=== PATIENT | female | born 1955 | race Caucasian/White ===

== ENCOUNTER 2018-05-02 07:45 | Outpatient (CLI) | payer OTHER | END 2018-05-02 07:46 | disposition home or self-care (01) | LOC: BICMAMMO 07:45 | PROVIDERS: ATTEND Obstetrics & Gynecology | DX: Z12.31 Encounter for screening mammogram for malignant neoplasm of breast (principal) | CPT/HCPCS: 77063; 77067 ==

== ENCOUNTER 2019-05-06 09:32 | Outpatient (CLI) | payer OTHER ==
--- NOTE | 2019-05-06 10:41 | MMO ---
Bilateral MAMMO Bilat Screen [facility]. CLINICAL HISTORY: Patient is 64 years old and is seen for screening. The patient has no family history of breast cancer. The patient has no personal history of cancer. The patient has a history of left Stereotatic Biopsy in May, - benign and left Cyst Aspiration in 1990. VIEWS: The views performed were: bilateral craniocaudal with tomosynthesis and bilateral mediolateral oblique with tomosynthesis. FILMS COMPARED: The present examination has been compared to prior imaging studies performed at [facility] on 05/26/2014, 06/08/2015, 04/12/2017 and 05/02/2018. This study has been interpreted with the assistance of computer-aided detection. MAMMOGRAM FINDINGS: There are scattered fibroglandular densities. There is a stable biopsy clip seen in the left breast. There are no suspicious masses, suspicious calcifications, or new areas of architectural distortion. IMPRESSION: THERE IS NO MAMMOGRAPHIC EVIDENCE OF MALIGNANCY. A ROUTINE FOLLOW-UP MAMMOGRAM IN 1 YEAR IS RECOMMENDED. THE RESULTS OF THIS EXAM WERE SENT TO THE PATIENT. ACR BI-RADS Category 2 - Benign finding MAMMOGRAPHY NOTE: 1. A negative mammogram report should not delay a biopsy if a dominant of clinically suspicious mass is present. 2. Approximately 10% to 15% of breast cancers are not detected by mammography. 3. Adenosis and dense breasts may obscure an underlying neoplasm. Reported by: JORDAN GEIGER MD Electonically Signed: [id number]
== END 2019-05-06 09:33 | disposition home or self-care (01) ==
LOC: BICMAMMO 09:32
PROVIDERS: ATTEND Obstetrics & Gynecology
DX: Z12.31 Encounter for screening mammogram for malignant neoplasm of breast (principal); Z91.89 Other specified personal risk factors, not elsewhere classified
CPT/HCPCS: 77063; 77067

== ENCOUNTER 2019-06-19 09:07 | Outpatient (CLI) | payer OTHER ==
--- NOTE | 2019-06-19 10:04 | ULT ---
BILATERAL RENAL ULTRASOUND: HISTORY: Angiomyolipoma. COMPARISON: None. CORRELATION: Abdomen MRI report from 06/20/2006. FINDINGS: Right kidney: Normal cortical echotexture. Isoechoic focus in the mid right renal pelvis measures 1.2 x 1.2 x 1.2 cm. No hydronephrosis. Right kidney measurements: 11.5 x 6.3 x 5.7 cm. Left kidney: Normal cortical echotexture. No hydronephrosis. Exophytic hyperechoic focus measures 1.7 x 1.3 x 1.6 cm and may represent an angiomyolipoma. Small hypoechoic focus measures 0.8 x 0.8 x 0.6 cm. Left kidney measurements: 12.1 x 6.3 x 6.3 cm. Urinary bladder: Normal mucosa. IMPRESSION: 1. No hydronephrosis. 2. Isoechoic focus in the mid right renal pelvis, incompletely characterized. 3. Hyperechoic focus in the left renal cortex compatible with patient's history of angiomyolipoma. Witt bcentimeter hypodensity in the left renal cortex is difficult to further characterize. Transcribed Date/Time: 06/19/2019 10:35 AM
== END 2019-06-19 09:08 | disposition home or self-care (01) ==
LOC: SCSULT 09:07
PROVIDERS: ATTEND Urology
DX: D17.9 Benign lipomatous neoplasm, unspecified (principal)
CPT/HCPCS: 76770

== ENCOUNTER 2020-09-25 07:13 | Outpatient (CLI) | payer MEDICARE | END 2020-09-25 07:14 | disposition home or self-care (01) | LOC: BICULT 07:13 | PROVIDERS: ATTEND Urology | DX: N28.1 Cyst of kidney, acquired (principal); D17.9 Benign lipomatous neoplasm, unspecified; R93.422 Abnormal radiologic findings on diagnostic imaging of left kidney | CPT/HCPCS: 76770 ==

== ENCOUNTER 2021-04-13 07:53 | Outpatient (CLI) | payer MEDICARE | END 2021-04-13 07:54 | disposition home or self-care (01) | LOC: BICMAMMO 07:53 | PROVIDERS: ATTEND Obstetrics & Gynecology | DX: Z12.31 Encounter for screening mammogram for malignant neoplasm of breast (principal) | CPT/HCPCS: 77063; 77067 ==

== ENCOUNTER 2021-09-01 07:46 | Outpatient (CLI) | payer MEDICARE | END 2021-09-01 07:47 | disposition home or self-care (01) | LOC: BICULT 07:46 | PROVIDERS: ATTEND Urology | DX: D17.71 Benign lipomatous neoplasm of kidney (principal) | CPT/HCPCS: 76770 ==